=== PATIENT | female | born 1960 | race Caucasian/White ===

== ENCOUNTER 2016-08-26 09:53 | Day surgery (SDC) | payer OTHER ==
[~2016-08-26 09:53] MED LIST: FENTANYL 250 MCG/5 ML AMP IV PRN; LACTATED RINGERS 1,000 ML IV SCH; LIDOCAINE Viscous 2% 15 ML UDCUP PO PRN; MIDAZOLAM HCL 5 MG/5 ML VIAL IV PRN
[2016-08-26] MEDS ORDERED: LACTATED RINGERS 1,000 ML ONE (10:01)
[2016-08-26] MEDS ORDERED: IV START KIT ONE (10:02)
[2016-08-26] MEDS ORDERED: LIDOCAINE 2% (PRES FREE) 5 ML VIAL ONE (10:11)
[2016-08-26] MEDS ORDERED: PROPOFOL 40 ML IV ONE (10:11)
--- NOTE | 2016-08-30 13:05 | SURGPATH ---
[facility] [address] [place] [id number] Patient Name: RD LEWIS MR#: [id number] : 1960 Gender: F Specimen #: [id number] Collected: 08/26/2016 Received: 08/29/2016 Reported: 08/30/2016 Submitting Phys: LC MCCAULEY Copy To Phys: [facility] Clinical History / Pre-Operative Diagnosis: LUQ PAIN; HEARTBURN; SATIETY; RULE OUT GIARDIA, CELIAC SPRUE AND GASTRITIS Specimen Source / Surgical Procedure Performed: #1-DUODENAL BIOPSY; #2-ANTRAL BIOPSY Interpretation: 1. DUODENUM, BIOPSY: - SMALL BOWEL MUCOSA WITH NO DIAGNOSTIC ABNORMALITY 2. STOMACH, ANTRUM, BIOPSY: - GASTRIC MUCOSA WITH NO DIAGNOSTIC ABNORMALITY Electronically Signed Out Sade Jin M.D. Gross Description: #1 The specimen is received in a formalin filled container labeled with the patient's name and "duodenal biopsy". Two taylor-roger biopsy is are each 0.4 cm. Totally embedded in cassette #1. #2 The specimen is received in a formalin filled container labeled with the patient's name and "antral biopsy". Two roger biopsies are 0.3 and 0.5 cm. Totally embedded in cassette #2. Sherif Fernandez PCornel Microscopic Description: 1. Sections show fragments of small bowel mucosa with long and well preserved villous processes. There is no significant inflammation and lymphocytes are not increased within the epithelium. No infectious organisms are identified and there is no dysplasia. 2. Sections show fragments of gastric mucosa. There is normal mucosal architecture and no significant inflammation. No Helicobacter organisms are identified and there is no intestinal metaplasia or dysplasia. 1: [id number] 2: 83869 R10.12
== END 2016-08-26 12:35 | disposition home or self-care (01) ==
LOC: SDC 09:53
PROVIDERS: ATTEND Internal Medicine Gastroenterology
PROC: 0DB98ZX Excision of Duodenum, Via Natural or Artificial Opening Endoscopic, Diagnostic (ICD-10-PCS; principal; 2016-08-26)
PROC: 0DB68ZX Excision of Stomach, Via Natural or Artificial Opening Endoscopic, Diagnostic (ICD-10-PCS; 2016-08-26)
DX: K29.60 Other gastritis without bleeding (principal); K29.80 Duodenitis without bleeding; R68.81 Early satiety; R14.0 Abdominal distension (gaseous)